=== PATIENT | female | born 1960 | race Caucasian/White ===

== ENCOUNTER 2018-08-02 08:30 | Inpatient (IN) ==
[2018-08-02] MEDS ORDERED: NS 1,000 ML IV ONE (11:03)
[2018-08-02 11:34] LABS: BASO# 0.04 X1000 (0.0-0.2); BASO% 0.6 % (0.0-0.8); EOS# 0.14 X1000 (0.0-0.7); HEMATOCRIT 41.7 % (37.0-47.0); HEMOGLOBIN 14.9 g/dL (12.0-16.0); LYMPH# 2.64 X1000 (1.2-3.4); MCH 30.2 PG (27-31); MCHC 35.7 g/dL (33-37); MCV 84.4 FL (81-99); MONO# 0.44 X1000 (0.11-0.59); MONO% 6.2 % (1.7-9.3); MPV 8.8 FL (7.4-10.4); NEUT# 3.87 X1000 (1.4-6.5); NEUT% 54.2 % (42.2-75.2); PLT 276 X1000 (130-400); RBC 4.94 XMIL (4.2-5.4); RDW 12.4 % (11.5-14.5); WBC 7.13 X1000 (4.8-10.8)
--- NOTE | 2018-08-02 11:53 | EKG Report ---
Test Performed on : 08/02/2018 08:58:52 AM Test Reason : weakness Blood Pressure : / mmHG Vent. Rate : 072 BPM Atrial Rate : 072 BPM P-R Int : 164 ms QRS Dur : 088 ms QT Int : 406 ms P-R-T Axes : 106 -04 042 degrees QTc Int : 444 ms Sinus rhythm. with frequent premature ventricular complexes. Nonspecific ST abnormality Abnormal ECG When compared with ECG of 07-JUL-2013 18:35, premature ventricular complexes. are now present Unconfirmed Result
[2018-08-02 11:56] LABS: AGAP 12; ALB/GLOB RATIO 1.3; ALBUMIN 4.6 g/dL (3.5-5.0); ALKALINE PHOSPHATASE 101 U/L (32-104); BUN 10 mg/dL (8-22); CALCIUM 10.1 mg/dL (8.8-10.2); CHLORIDE 104 mmol/L (98-107); COSMO 284; CREATININE 0.8 mg/dL (0.5-0.9); ESTIMATED GFR > 60; GLUCOSE 101 mg/dL (70-104); GOT 19 U/L (10-30); GPT 15 U/L (10-36); MAGNESIUM 1.8 mg/dL (1.5-2.7); POTASSIUM 3.4 mmol/L (3.5-5.1); SODIUM 143 mmol/L (136-145); TCO2 27 mmol/L (25-35); TOTAL PROTEIN 8.1 g/dL (6.3-8.3)
--- NOTE | 2018-08-02 11:57 | Diag Imaging Result Doc PS360 ---
EXAM: CT HEAD W/O CONTRAST HISTORY: bilateral lower extremity weakness TECHNIQUE: CT head without contrast COMPARISON: 07/07/2013 FINDINGS: No parenchymal hemorrhage. No epidural or subdural hematoma. No subarachnoid hemorrhage. There is mild atrophy chronic microvascular ischemic changes. Old lacunar infarct near the anterior horn of the left internal capsule. No mass identified on this noncontrasted exam. No hydrocephalus. No sinus opacification. IMPRESSION: 1.No hemorrhage 2.Atrophy with chronic microvascular ischemic changes and small old right infarct. This exam was performed using automated exposure control, adjustment of mA or kV according to patient size, and/or use of iterative reconstruction technique. Electronically signed by Jere Camilo 08/02/2018 11:55 AM
--- NOTE | 2018-08-02 11:58 | Diag Imaging Result Doc PS360 ---
EXAM: CHEST-2 VIEWS HISTORY: cough TECHNIQUE: Two views COMPARISON: 07/07/2013 FINDINGS: The lungs are well expanded. There is mild vascular distention. There are increased interstitial markings in the left lung base. No cardiomegaly. Questionable tiny left pleural effusion. IMPRESSION: Pulmonary edema with atelectasis or a small infiltrate in the left lung base. Electronically signed by Jere Camilo 08/02/2018 11:56 AM
--- NOTE | 2018-08-02 12:01 | Diag Imaging Result Doc PS360 ---
EXAM: ABDOMEN FLAT/UPRIGHT HISTORY: lower abdominal tenderness/diarrhea TECHNIQUE: Flat and upright, two views COMPARISON: None. FINDINGS: No free air beneath the diaphragm. Nonspecific bowel gas pattern although there is stool throughout the colon. No organomegaly. No foreign body. No abnormal abdominal calcifications. IMPRESSION: Mild constipation. Electronically signed by Jere Camilo 08/02/2018 11:58 AM
[2018-08-02 12:24] LABS: URINE SOURCE CLEAN CATCH
[2018-08-02 12:35] LABS: BILIRUBIN URINE NEGATIVE (NEGATIVE); BLOOD URINE NEGATIVE (NEGATIVE); COLOR STRAW; GLUCOSE URINE NEGATIVE (NEGATIVE); KETONE URINE NEGATIVE (NEGATIVE); LEUKOCYTES URINE NEGATIVE (NEGATIVE); NITRITE URINE NEGATIVE (NEGATIVE); PH URINE 7.5; PROTEIN URINE NEGATIVE (NEGATIVE); TURBIDITY URINE CLEAR (CLEAR); UR EPITHELIAL CELLS <10 /HPF (<10); URINE BACTERIA NEGATIVE /HPF; URINE RBC <10 /HPF (<10); URINE WBC <10 /HPF (<10); UROBILINOGEN URINE NORMAL (NORMAL)
[2018-08-02] MEDS ORDERED: ROCEPHIN 1 GM in NS 50 ML IV ONE (12:58)
--- NOTE | 2018-08-02 14:53 | Diag Imaging Result Doc PS360 ---
EXAM: CT THORAX W/CONTRAST INDICATION: pulmonary edema vs pne TECHNIQUE: This exam was performed using automated exposure control, adjustment of mA or kV according to patient size, and/or use of iterative reconstruction technique. COMPARISON: None. FINDINGS: There is bilateral interstitial thickening with a basilar predominance most compatible with pulmonary edema. There is also a component of subsegmental atelectasis at both lung bases. There is no pleural fluid collection and no pneumothorax. The heart is borderline prominent. There is no significant mediastinal or hilar lymphadenopathy. The thyroid is diffusely heterogeneous and there are a couple of nodules at the isthmus and the left thyroid lobe that exhibit rim calcification. This most likely represents multinodular goiter. Surveillance with thyroid ultrasound is recommended. Limited views of the upper abdomen are essentially unremarkable. IMPRESSION: 1.Interstitial thickening bilaterally with a basilar predominance most compatible with pulmonary edema and probably a component of bibasilar atelectasis. 2.Heterogeneous and nodular thyroid gland as described. Electronically signed by Wil Painting 08/02/2018 2:51 PM
[2018-08-02] MEDS ORDERED: LASIX IV ONE (15:04)
[2018-08-02] MEDS ORDERED: APRESOLINE IV ONE (15:04)
--- NOTE | 2018-08-02 17:00 | Diag Imaging Result Doc PS360 ---
EXAM: CT LUMBAR SPINE W/O CONTRAST INDICATION: LBP, bilateral leg weakness TECHNIQUE: This exam was performed using automated exposure control, adjustment of mA or kV according to patient size, and/or use of iterative reconstruction technique. COMPARISON: None. FINDINGS: There are at least small broad-based disc bulges at virtually every lumbar level. This is most significant at L4-5 and, to a lesser degree, L3-4 where there is at least moderate central stenosis. There is also mild facet arthropathy at L4-5. Otherwise, there is no discrete fracture, subluxation, or significant intrinsic osseous lesion. Review of the surrounding soft tissues reveals an incidental 3.4 cm right ovarian cyst. Surrounding soft tissues are essentially unremarkable, otherwise. IMPRESSION: 1.Multilevel degenerative disc disease that is probably most significant at L4-5 as detailed above. 2.Incidental right ovarian cyst. Electronically signed by Wil Painting 08/02/2018 4:58 PM
[2018-08-02] MEDS ORDERED: KLOR-CON PO ONE (20:04)
[2018-08-02] MEDS: SODIUM CHLORIDE 0.9% INJ SCH (20:40)
[2018-08-02] MEDS: PROTONIX IV SCH (20:40)
--- NOTE | 2018-08-02 20:40 | PROVIDER DOCUMENTATION ---
This chart was entered by Alexus Davila Scribe, acting as scribe for Nicko Carter CRNP. HPI-General Adult - General Chief Complaint: Weakness Stated Complaint: CANT WALK Time Seen by Provider: 08/02/18 10:39 Source: patient, family (brother) Allergies/Adverse Reactions: Patient Allergies Allergy/AdvReac Type Severity Reaction Status Date / Time No Known Allergies Allergy Verified 12/23/13 19:35 Home Medications: Home Medication List Medication Instructions Recorded Confirmed Last Taken Type Fluticasone 50 Mcg Nasal Kell[place] 1 spray CORINNE DAILY 04/02/13 12/23/13 05/13/13 08:00 History [Flonase] Labetalol [Trandate] 300 mg PO BID 04/02/13 12/23/13 12/22/13 History Montelukast [Singulair] 10 mg PO QHS 04/02/13 12/23/13 12/21/13 History Olopatadine 0.1% Oph Solution 1 drop BOTH EYES BID 04/02/13 12/23/13 05/13/13 08:00 History [Patanol 0.1% Oph Solution] Aspirin 81 mg PO DAILY #0 chewtab 04/04/13 12/23/13 07/05/13 Rx ATORVAstatin [Lipitor] 80 mg PO HS #0 tablet 04/09/13 12/23/13 12/21/13 Rx [place]-3 Fatty Acids [Fish Oil 1,000 mg PO BID #60 capsule 05/22/13 12/23/13 12/22/13 Rx Concentrate] Potassium Chloride E.r. [Klor-Con] 20 meq PO QAM #30 tablet 05/22/13 12/23/13 12/22/13 Rx Quetiapine [Seroquel] 125 mg PO QHS #75 tablet 05/22/13 12/23/13 12/21/13 Rx Benztropine [Cogentin] 1 mg PO BID 12/23/13 12/23/13 12/22/13 History Diltiazem HCl [Diltiazem 24Hr Cd] 360 mg PO DAILY 12/23/13 12/23/13 12/22/13 History Irbesartan/Hydrochlorothiazide 1 each PO DAILY 12/23/13 12/23/13 12/22/13 Hi story [Irbesartan-Hctz 300-12.5 mg Tb] Ranitidine [Zantac] 150 mg PO BID 12/23/13 12/23/13 12/22/13 History - History of Present Illness -Gen Adult Nature of Presenting Problems: 58 yowf presents to the ed with her brother. Brother sts pt went to get on the bus this am and stumbled and was having difficulty with ambulation. Pt sts on tuesday night with diarrhea, cough, nasal drainage, left lower back pain. pt sts BLE weakness has been since yesterday. She denies fever or any other symptoms. She is non-toxic in appearance. Location of Pain/Injury: reports: back (left rad to left hip), lower extremity (weakness) Quality of Pain: reports: aching Severity: reports: moderate Onset/Duration: reports: 24 hours ago (weakness) Timing: reports: still present, getting worse Context/Activities at Onset: reports: light activity Modifying Factors: improves with: nothing Associated Symptoms: reports: back/neck pain (left lumbar), cough, diarrhea (fri-tue), EENT symptoms (nasal discharge), joint pain (left hip), weakness (BLE), trouble walking. denies: shortness of breath Similar Symptoms Previously?: No Recently seen or treated by another doctor?: No Review of Systems - Adult - REVIEW OF SYSTEMS - ADULT Constitutional: denies: chills, fever Eyes: reports: no symptoms reported Ears, Nose, Mouth & Throat: reports: see HPI, other (nasal dscharge) Cardiovascular: reports: no symptoms reported Respiratory: reports: see HPI, cough. denies: shortness of breath, wheezing Gastrointestinal: reports: no symptoms reported Genitourinary: reports: see HPI, hesitency, urgency. denies: dysuria Musculoskeletal: reports: see HPI, back pain (left lumbar), muscle weakness (BLE). denies: neck pain Integumentary: reports: no symptoms reported Neurological: reports: see HPI, tremors (LUE). denies: dizziness/vertigo, headache/migraines Psychiatric: reports: no symptoms reported Endocrine: reports: no symptoms reported Hematologic/Lymphatic: reports: no symptoms reported Allergic/Immunologic: reports: no symptoms reported All Other Systems: Reviewed and Negative Past History - Adult - PAST MEDICAL HISTORY-ADULT Review of Records: reports: Nursing Assessment Review, Medications Reviewed Major Childhood Illnesses: reports: denies history Cardiovascular: reports: A-Fib, HTN Respiratory: reports: asthma Gastrointestinal: reports: denies history Obstetrical/Gynecological: reports: denies history Genitourinary: reports: denies history Musculoskeletal: reports: denies history Neurological: reports: cognitive dysfunction, CVA Psychiatric: reports: schizophrenia Endocrine/Immune: reports: denies history Other Conditions: reports: denies history - PRIOR SURGERIES/PROCEDURES Surgical/Procedure History: reports: breast, other (lumpectomy) - IMMUNIZATION STATUS Childhood Immunizations: See Nurse Assessment Flu Vaccine: See Nurse Assessment - FAMILY HISTORY Family History: reviewed, not pertinent - SOCIAL HISTORY Smoking: quit greater than 1 year Substance Use: denies Living Situation: family (lives with brother) Physical Exam-General - PHYSICAL EXAM-ADULT Initial Vital Signs Reviewed: Yes - CONSTITUTIONAL General Appearance: alert, no apparent distress, obese. negative: lethargic, slow to respond - EYES Eyes: PERRL/EOMI, pink conjunctivae - HEAD, EARS, NOSE, MOUTH & THROAT HENMT: normocephalic/atraumatic, moist mucous membranes - NECK Neck: non-tender, full range of motion, supple, normal inspection - RESPIRATORY Respiratory: chest non-tender, lungs clear, no pleuratic chest pain, no respiratory distress, no accessory muscle use, decreased breath sounds - CARDIOVASCULAR Cardiovascular: normal peripheral pulses, regular rate, rhythm, no edema, no gallop, no JVD, no murmur - GASTROINTESTINAL (ABDOMEN) Abdominal Exam: normal bowel sounds, soft, no organomegaly, no pulsatile mass, tenderness (suprapubic with palpation). negative: distended, guarding, rigid, rebound - LYMPHATIC Lymphatic: no adenopathy - MUSCULOSKELETAL Back Exam: normal inspection, other (left lumbar tenderness) Extremity: non-tender, normal capillary refill, pelvis stable - SKIN Integumentary: normal color, normal turgor, warm/dry. negative: cyanosis, diaphoresis, jaundice, mottled, pallor - NEUROLOGIC Neurologic: grossly normal, no motor/sensory deficits - PSYCHIATRIC Psych/Mental Status: normal mood/affect, normal thought content, normal thought process, oriented x 3 Progress - PLAN OF CARE/RESULTS Progress/Plan/Lab Results: Vital Signs - 8 hr 08/02/18 08:43 Temperature 97.4 F L Pulse Rate 73 Respiratory Rate 18 Blood Pressure 178/89 O2 Sat by Pulse Oximetry 94 L Laboratory Results - last 24 hr 08/02/18 09:07 POC Glucose 110 H 1256- Dr. Olivo paged for admission. 1505- Spoke with Dr. Olivo about CT result. He states he will enter further orders. Result Diagrams: 08/02/18 11:15 08/02/18 11:15 - REASSESSMENT Reassessment #1 Time Reassessed: 12:23 Status: improving - EKG 1 Time of EKG reading by physician:: 09:03 EKG Read and Signed by:: Nitin Sanches EKG Interpretation (*Must complete 3 of following elements*): Abnormal Rate: 72 Rhythm: sinus rhythm with freq pvc Jamul: normal QRS: PVC's CT Interval: normal Comments: nonspecific ST abnormality - XRAY 1 XRAY: Bilateral XRAY Study: Chest Impression: See EMR Report (EXAM: CHEST-2 VIEWS HISTORY: cough TECHNIQUE: Two views COMPARISON: 07/07/2013 FINDINGS: The lungs are well expanded. There is mild vascular distention. There are increased interstitial markings in the left lung base. No cardiomegaly. Questionable tiny left pleural effusion. IMPRESSION: Pulmonary edema with atelectasis or a small infiltrate in the left lung base. Electronically signed by Jere Camilo 08/02/2018 11:56 AM 08/02/18 1156 Interpreting Physician: Jere Camilo MD Dictated Date/Time: 08/02/18 1153 cc: Nicko Carter; Zeke Olivo MD) 2 XRAY: Bilateral XRAY Study: Abdomen Impression: See EMR Report (EXAM: ABDOMEN FLAT/UPRIGHT HISTORY: lower abdominal tenderness/diarrhea TECHNIQUE: Flat and upright, two views COMPARISON: None. FINDINGS: No free air beneath the diaphragm. Nonspecific bowel gas pattern although there is stool throughout the colon. No organomegaly. No foreign body. No abnormal abdominal calcifications. IMPRESSION: Mild constipation. Electronically signed by Jere Camilo 08/02/2018 11:58 AM 08/02/18 1158 Interpreting Physician: eJre Camilo MD Dictated Date/Time: 08/02/18 1157 cc: Nicko Carter; Zeke Olivo MD) - CT/MRI 1 CT Study: Head Impression: See EMR Report (EXAM: CT HEAD W/O CONTRAST HISTORY: bilateral lower extremity weakness TECHNIQUE: CT head without contrast COMPARISON: 07/07/2013 FINDINGS: No parenchymal hemorrhage. No epidural or subdural hematoma. No subarachnoid hemorrhage. There is mild atrophy chronic microvascular ischemic changes. Old lacunar infarct near the anterior horn of the left internal capsule. No mass identified on this noncontrasted exam. No hydrocephalus. No sinus opacification. IMPRESSION: 1.No hemorrhage 2.Atrophy with chronic microvascular ischemic changes and small old right infarct. This exam was performed using automated exposure control, adjustment of mA or kV according to patient size, and/or use of iterative reconstruction technique. Electronically signed by Jere Camilo 08/02/2018 11:55 AM 08/02/18 1155 Interpreting Physician: Jere Camilo MD Dictated Date/Time: 08/02/18 1154 cc: Nicko Carter; Zeke Olivo MD) - CONSULTS/PCP/HOSPITALIST Notification #1 *Consult/PCP/Hospitalist*: Dr. Olivo Time Discussed: 13:25 Reason/Comments: admission for pulmonary infiltrate/weakness Consult Disposition: Admit (Md states to admit and call him back with BNP and CT thorax result.) Departure - Departure Date of Disposition Decision: 08/02/18 Time of Disposition Decision: 13:25 DIAGNOSIS: Weakness Pulmonary edema Qualifiers: Chronicity: acute Qualified Code(s): J81.0 - Acute pulmonary edema Disposition: ADMITTED INPATIENT 09 Certified Medical Emergency: Emergent Condition: Stable - Critical Care Note This patient required my direct & personal management of CC.: No Attestation - Physician/ JAMAL Attestation Patient care was provided by Advanced Practice Provider:: Yes Advanced Practice Provider:: Nicko Carter Advanced Practice Provider documentation review:: The Mid-level provider documentation, treatment plan and medical decision making was reviewed by the physician who agrees with all treatment and medical decision making by the P. The physician spent face to face time with patient:: No Advanced Practice Provider documentation review:: Supervising physician onsite and consulted in the evaluation and care of this patient. The physician did not have a face to face encounter with the patient. This chart was documented by the indicated scribe, (Alexus Davila Scribe) and accurately reflects the services I performed and decisions made by me, Nicko Carter CRNP, as attested by the provider's signature.
[2018-08-02] MEDS: LOVENOX SUBQ SCH (20:44)
[2018-08-03 05:22] LABS: ALLEN TEST YES; BE 4.4 mmoll (-3.0-3.0); BLOOD TYPE ARTERIAL; HCO3-(ACT) 28.3 mmoll (20.0-26.0); METHB 1.4 % (0.0-1.5); O2(CT) 22.1 mL/dL (15.0-23.0); O2HB 95.5 % (95.0-99.0); PCO2(98.6) 34 mmHg (35-45); PO2(98.6) 93 mmHg (60-100); SAMPLE BLOOD; SAO2 98.6 % (95.0-100.0); THB 16.4 g/dL (11.5-17.4); pH(98.6) 7.51 (7.35-7.45)
[2018-08-03 05:25] LABS: MODALITY ROOM AIR
--- NOTE | 2018-08-03 06:17 | HISTORY AND PHYSICAL ---
CHIEF COMPLAINT: Back pain, unable to ambulate. HISTORY OF PRESENT ILLNESS: She is a 58-year-old white female who is well known to my practice, seen in my office on 06/13/2018, severe back pain and not able to ambulate. At that time the workup was essentially unremarkable. The patient has a history of paranoid schizophrenia under the care of Dr. Hayward. Apparently, the patient was receiving Aristada 882 mg monthly injection. I discussed with the patient's caregiver that the patient is exhibiting drug- induced parkinsonism. Follow up with Dr. Hayward. Nevertheless, patient is still receiving the shot and worsening of extrapyramidal symptoms and cramping, not able to ambulate. The patient was brought into the ER and was evaluated in the emergency room by the nurse practitioner. I did review the workup. Basically all her symptoms are due to drug-induced parkinsonism from antipsychotics. The patient needs to be hospitalized for deconditioning with parkinsonism due to drug- induced. I am going to discuss with Dr. Hayward. PAST MEDICAL HISTORY: 1. Allergic rhinitis. 2. Early mild dementia. 3. Hypertension. 4. Hiatal hernia. 5. Drug-induced parkinsonism. 6. Overactive bladder. 7. Paranoid schizophrenia. PAST SURGICAL HISTORY: None. MEDICINES IN MY OFFICE: Amlodipine 10 mg daily, Aristada 882 mg intramuscular once a month, Depakote 500 p.o. once daily, Aricept 10 mg daily, losartan 50 p.o. b.i.d., Losartan 50 mg once daily, Seroquel 200 daily, tolterodine 2 mg twice daily, Singulair 10 daily, Patanol 1 drop both eyes daily, labetalol 300 p.o. b.i.d., Zantac 150 b.i.d., Trospium capsule 60 mg daily. ALLERGIES: Not known. SOCIAL HISTORY: Lives in [place]. No smoking. No alcohol. FAMILY HISTORY: Father of suicide at 41. Mom is alive. REVIEW OF SYSTEMS: HEENT: No headache, no vision problem. Cardiopulmonary: No chest pain, shortness of breath. Gastrointestinal: No nausea, vomiting, abdominal pain. Genitourinary: No history of hesitancy, frequency, dysuria. Musculoskeletal: Back pain, not able to ambulate, and patient is extremely tremulous. No focal symptoms or weakness. PHYSICAL EXAMINATION: VITAL SIGNS: Temperature is 97 degrees, pulse 79, blood pressure is stable. Room air 94%. HEENT EXAM: Atraumatic, normocephalic. Pupils equal, reactive to light. NECK: Supple. CHEST: Bilateral air entry. HEART: Sounds are regular. No gallop. ABDOMEN: Belly is soft, nontender. Good bowel sounds. EXTREMITIES: Mild increased rigidity. NEUROLOGICAL: Resting tremor noted. No obvious deficits noted. INVESTIGATIONS: CBC: White cell count 7.1, hematocrit 41.7, platelets 276,000. SMA 7 is normal. Potassium 3.4, glucose 110. LFTs, cardiac enzymes were normal. ProBNP were normal. Urinalysis is clear. Lumbar spine CT: Multilevel DJD changes, most significant at L4 and L5. Incidental right ovarian cyst. Chest CT: Interstitial thickening and nodule in the left thyroid gland. CT head: No hemorrhage. Old right infarct. Chest x-ray: Bilateral interstitial scarring. Abdominal x-ray: Mild ileus noted and constipation. ASSESSMENT AND PLAN: 1. A 58-year-old white female came in with worsening of back pain and also drug- induced parkinsonism, declining of activities of daily living with underlying paranoid schizophrenia. Plan is discontinue antipsychotic. We will discuss with Dr. Hayward, and I am going to check the ABG on room air. Follow up on CK and CRP and B12 and vitamin D levels. 2. Hypokalemia. Replace the potassium. 3. Deep venous thrombosis prophylaxis with Lovenox and gastrointestinal prophylaxis with Protonix. The nurses need to update her home medication list, which is different from my list. We will reconcile her home medications. Discussed the plan of care with the family at bedside. Basically as follows: 1. Hypertension. Patient is on Norvasc 10 mg daily , losartan 50 b.i.d.. 2. Dementia on Aricept 10 daily. 3. Allergies, on Flonase and Singulair. HEALTH MAINTENANCE: Last mammography [address] Rosenberg on multiple precancerous polyps for surveillance. Last colonoscopy June 2017 overactive bladder on tolterodine 2 mg b.i.d. We will reconcile the medicines and will follow up. cc: Rito Olivo MD [facility]ay[facility]
[2018-08-03 06:27] LABS: CALCIUM 10.5 mg/dL (8.8-10.2); POTASSIUM 3.1 mmol/L (3.5-5.1)
[2018-08-03 06:47] LABS: VITAMIN D 25 HYDROXY 26.5 NG/DL
[2018-08-03] MEDS ORDERED: SEROQUEL PO ONE (07:38)
[2018-08-03] MEDS: LOVENOX SUBQ SCH (20:38)
[2018-08-03] MEDS: SODIUM CHLORIDE 0.9% INJ SCH (20:38)
[2018-08-03] MEDS: PROTONIX IV SCH (20:38)
--- NOTE | 2018-08-03 21:27 | PROGRESS NOTE ---
DATE: 08/03/2018 SUBJECTIVE: The patient was seen in the emergency room. Still waiting to be admitted. The patient is still tremulous and rigid and bedridden. The patient is awake. EXAMINATION: Temp is 97, pulse is 89, blood pressure 134/90. Height 5 feet 5 inches, weight 88 pounds.HEENT: Within normal limits. Chest: Clear. Heart: Heart sounds are regular. She is exhibiting a resting tremor, slight rigidity. INVESTIGATIONS: ABG: pH is 7.51, pCO2 34, pO2 93. SMA-7: Potassium 3.1, chloride 1.0. Cardiac enzymes were negative. ProBNP is normal. CRP was normal. B12, vitamin D is slightly low. ASSESSMENT AND PLAN: 1. Chronic back pain spasms due to drug-induced parkinsonism. Discontinue antipsychotics and quetiapine. 2. DVT prophylaxis. This afternoon I spoke to Dr. Hayward on the phone. He agreed with diagnosis. He advised to discontinue quetiapine and antipsychotic drug injection. It takes a while. 3. Vitamin D deficiency replacement. 4. Reconcile home medicines for blood pressure. Slightly dehydration, IV fluids and continue physical therapy. I spoke to the son on the telephone. Will discharge tomorrow morning with outpatient [facility] and Dr. Hayward is going to follow up and make the adjustments of antipsychotic drugs. There is no evidence of neuroleptic malignant syndrome noted. LEVEL OF DOCUMENTATION: 25 minutes. cc: Rito Olivo MD [facility]
[2018-08-04] MEDS: NS 1,000 ML IV SCH ×2 (05:39→09:23)
[2018-08-04] MEDS ORDERED: INDERAL LA PO SCH (09:00)
[2018-08-04] MEDS ORDERED: FLONASE NAS SCH (09:00)
[2018-08-04] MEDS ORDERED: COZAAR PO SCH (09:00)
[2018-08-04] MEDS ORDERED: VITAMIN D PO SCH (09:00)
[2018-08-04] MEDS ORDERED: NORVASC PO SCH (09:00)
[2018-08-04] MEDS ORDERED: SANCTURA XR PO SCH (09:00)
[2018-08-04 16:30] VITALS: BP 141/105
--- NOTE | 2018-08-06 17:44 | DISCHARGE SUMMARY ---
ADMISSION DATE: 08/02/2018 DISCHARGE DATE: 08/04/2018 DISCHARGING DIAGNOSES: 1. Intractable back pain due to spondylosis at L4-L5. 2. Deconditioning due to Drug induced parkinsonism syndrome. 3. Allergic rhinitis, 4.Mild cognitive impairment, 5.Hypertension, 6. Hiatal hernia. 7. Active bladder. 8. Paranoid schizophrenia. Please see the H and P that was done on 08/02/2018. HOSPITAL COURSE: In brief, she is a 58-year-old white female with above problems, under the care of Dr. Hayward with psychotic drugs, keeps on worsening with some balance problems and Tremor for the last 2 months. The patient came in with back pain, not able to ambulate. Hospital course, essentially all the workup was negative. Patient has drug-induced parkinsonism. I spoke to Dr. Hayward. He wants to discontinue Aristada which takes in 6 weeks out from system, and also quetiapine. I discussed with son, the caregiver on the telephone. The patient is going to follow up with Dr. Hayward next week in the office. Medically she is stable in terms of the blood pressure. LABORATORY DATA: CBC: White cell count 7.1, hematocrit 41.7, platelet 276,000. ABG: pH is 7.51, pCO2 34, PO2 93 on room air. SMA-7: Sodium 143, potassium 3.1, chloride 99, BUN 15, creatinine 1.0, glucose 135, calcium 10.1. LFTs were normal. Cardiac enzymes were negative. ProBNP is normal. Vitamin B12 is normal. Vitamin D on the low side, slight vitamin D deficiency. Urinalysis is clear. RADIOLOGY PROCEDURES: 1. Lumbar spine CT: Mostly pronounced L4-L5, DJD disk disease. Incidental right ovarian cyst, about 3.[address]: Interstitial prominence. Goiter on the left thyroid lobe. 3. CT head: No hemorrhage. Old right infarct. DISCHARGE INSTRUCTIONS: 1. Flonase nasal spray 1 spray each nostril daily. 2. Amlodipine 10 mg daily. 3. Losartan 100 daily. 4. Discontinue Aristada. 5. Discontinue quetiapine. 6. Vitamin D 50,000 once a week. 7. Diclofenac gel as needed for pain. 8. Propanol 80 mg daily. 9. Prilosec 40 daily, 10 [place] 60 mg every day for overactive bladder. FOLLOWUP: 1. Follow up in my office in two weeks. 2. Follow up with Dr. Hayward. cc: Rito Olivo MD MTDD
== END 2018-08-04 18:58 | disposition home health service (06) | DRG 57 ==
LOC: ED 08:30 → EDIPHOLD 15:42 → 3N 08-03 11:00
PROVIDERS: ADMIT Internal Medicine; ATTEND Internal Medicine
CPT/HCPCS: 70450; 71020; 71046; 71260; 72131; 74019; 74020; 80048; 80053; 81001; 82306; 82550; 82607; 82805; 82948; 83605; 83735; 83880; 84484; 85025; 86140; 87040; 93005; 96365; 96372; 96375; 97116; 97162; 99285; A9270; C9113; J0360; J0696; J1650; J1940; J7030; Q9967; S0164; XXXXX